=== PATIENT | female | born 1945 | race Caucasian/White ===

== ENCOUNTER 2017-02-17 08:23 | Outpatient (CLI) | payer MEDICARE ==
[2017-02-17 12:28] LABS: Hemoglobin A1c 7.2 % (4.0-6.0)
[2017-02-17 12:51] LABS: Anion Gap 14 mmol/L (10-20); BUN (Urea Nitrogen) 15 mg/dL (9.8-20.1); Calc. Creatinine Clearance 0 mL/min (70-130); Carbon Dioxide 25 mmol/L (23-31); Chloride 103 mmol/L (98-107); Estimated GFR-MDRD 74; Glucose 143 mg/dL (80-115); Potassium 3.9 mmol/L (3.5-5.1); Sodium 138 mmol/L (136-145)
== END 2017-02-17 08:24 | disposition home or self-care (01) ==
LOC: NAVSJIPCSP 08:23
PROVIDERS: ATTEND Internal Medicine
DX: E11.9 Type 2 diabetes mellitus without complications (principal); E78.5 Hyperlipidemia, unspecified; I10 Essential (primary) hypertension
CPT/HCPCS: 36415; 80048; 83036

== ENCOUNTER 2017-02-18 13:34 | Outpatient (CLI) | payer MEDICARE | END 2017-02-18 13:35 | disposition home or self-care (01) | LOC: NAVSJIPCSP 13:34 | PROVIDERS: ATTEND Internal Medicine | DX: E11.9 Type 2 diabetes mellitus without complications (principal) ==

== ENCOUNTER 2018-10-17 19:49 | Emergency (ER) | payer MEDICARE, OTHER ==
[2018-10-17 20:32] LABS: #Basophils 0.1 thou/uL (0.0-0.2); #Eosinphils 0.2 thou/uL (0.0-0.7); #Lymphocytes 2.4 thou/uL (1.20-3.40); #Monocytes 0.3 thou/uL (0.11-0.59); #Neutrophils 2.6 thou/uL (1.40-6.50); %Basophils 1.5 % (0.0-1.0); %Eosinophils 2.9 % (0.0-10.0); %Lymphocytes 43.2 % (21.0-51.0); %Monocytes 5.2 % (0.0-10.0); %Neutrophils 47.2 % (42.0-75.0); Hemoglobin 13.7 g/dL (12.0-16.0); Mean Corpuscular HGB CONC 33.6 g/dL (32.0-36.0); Mean Corpuscular Volume 95.2 fL (78.0-98.0); Mean Platelet Volume 7.6 fL (7.4-10.4); Platelet Count 208 thou/uL (130-400); RBC Distribution Width 11.6 % (11.5-14.5); White Blood Cell (WBC) Count 5.6 thou/uL (4.8-10.8)
[2018-10-17 20:47] LABS: Anion Gap 14 mmol/L (10-20); BUN (Urea Nitrogen) 11 mg/dL (9.8-20.1); Calc. Creatinine Clearance 0 mL/min (70-130); Calcium 9.3 mg/dL (7.8-10.44); Carbon Dioxide 27 mmol/L (23-31); Chloride 106 mmol/L (98-107); Estimated GFR-MDRD 76; Glucose 97 mg/dL (80-115); Potassium 3.7 mmol/L (3.5-5.1); Sodium 143 mmol/L (136-145)
== END 2018-10-17 21:20 | disposition home or self-care (01) ==
LOC: NAV ERS 19:49
DX: R60.0 Localized edema (principal); Z79.84 Long term (current) use of oral hypoglycemic drugs; Z79.899 Other long term (current) drug therapy
CPT/HCPCS: 80048; 85025; 85379; 99283

== ENCOUNTER 2018-11-09 14:02 | Outpatient (CLI) | payer MEDICARE, OTHER ==
[~2018-11-09 14:02] MED LIST: Iopamidol 370 76% 100 ML VIAL ONE
--- NOTE | 2018-11-09 17:20 | CT ---
ABDOMEN AND PELVIC CT SCAN WITH AND WITHOUT IV CONTRAST: 11/09/18 HISTORY: Asymptomatic microscopic hematuria. The lung bases appear clear of acute process. Left lobe of the liver cyst. Small liver granuloma calc ification. The visualized gallbladder, pancreas, and spleen are unremarkable. There is a 1.[address] nodule involving the left adrenal gland, evidence for small adenoma. Small bilateral renal hypode nsities, too small to definitively characterize but show no evidence for enhancement and are statisti walter small cysts. No renal calculus or acute obstruction. Unremarkable appearing urinary bladder. Bilateral fat containing inguinal hernias. IMPRESSION: No renal calculi or obstruction. Small bilateral renal cysts. Small left adrenal adenoma. Small li anthony cyst. Scattered colonic diverticulosis without acute diverticulitis. Bilateral small inguinal fat containing hernias. POS: C
== END 2018-11-09 14:03 | disposition home or self-care (01) ==
LOC: NAV CT 14:02
PROVIDERS: ATTEND Internal Medicine
DX: R31.21 Asymptomatic microscopic hematuria (principal); N28.1 Cyst of kidney, acquired; K57.30 Diverticulosis of large intestine without perforation or abscess without bleeding; K40.20 Bilateral inguinal hernia, without obstruction or gangrene, not specified as recurrent; D35.02 Benign neoplasm of left adrenal gland; K76.89 Other specified diseases of liver
CPT/HCPCS: 74178; Q9967

== ENCOUNTER 2020-06-27 15:04 | Emergency (ER) | payer MEDICARE ==
[2020-06-27] MEDS ORDERED: Lidocaine 1% w/Epinephrine 1:100K 30 ML VIAL ONE (15:23)
[2020-06-27] MEDS ORDERED: TETANUS, DIPHTHERIA TOX,ADULT (TDVAX) 0.5 ML VIAL IM ONE (15:35)
[2020-06-27] MEDS ORDERED: Boostrix 0.5 ML (Tdap) VIAL ONE (15:36)
[2020-06-27] MEDS ORDERED: Bacitracin 1 PK ONE (16:38)
== END 2020-06-27 16:49 | disposition home or self-care (01) ==
LOC: NAV ERS 15:04
DX: S91.011A Laceration without foreign body, right ankle, initial encounter (principal); E11.9 Type 2 diabetes mellitus without complications; E78.5 Hyperlipidemia, unspecified; I10 Essential (primary) hypertension; F17.210 Nicotine dependence, cigarettes, uncomplicated; Z79.84 Long term (current) use of oral hypoglycemic drugs; Z79.899 Other long term (current) drug therapy
CPT/HCPCS: 12002; 90471; 90714; 90715

== ENCOUNTER 2020-07-06 09:58 | Emergency (ER) | payer MEDICARE, OTHER ==
[2020-07-06] MEDS ORDERED: Clindamycin 150 MG CAP ONE (10:37)
== END 2020-07-06 10:48 | disposition home or self-care (01) ==
LOC: NAV ERS 09:58
DX: L03.115 Cellulitis of right lower limb (principal); S91.011D Laceration without foreign body, right ankle, subsequent encounter; E11.9 Type 2 diabetes mellitus without complications; E78.5 Hyperlipidemia, unspecified; I10 Essential (primary) hypertension; F17.210 Nicotine dependence, cigarettes, uncomplicated; Z79.84 Long term (current) use of oral hypoglycemic drugs; Z79.899 Other long term (current) drug therapy; W20.8XXD Other cause of strike by thrown, projected or falling object, subsequent encounter
CPT/HCPCS: 99283

== ENCOUNTER 2023-11-20 10:29 | Emergency (ER) | payer MEDICARE | END 2023-11-20 10:52 | disposition home or self-care (01) | LOC: NAV ERS 10:29 | DX: T25.112A Burn of first degree of left ankle, initial encounter (principal); E11.9 Type 2 diabetes mellitus without complications; E78.5 Hyperlipidemia, unspecified; I10 Essential (primary) hypertension; Z79.84 Long term (current) use of oral hypoglycemic drugs; Z79.899 Other long term (current) drug therapy; F17.210 Nicotine dependence, cigarettes, uncomplicated; X10.0XXA Contact with hot drinks, initial encounter | CPT/HCPCS: 99283 ==